=== PATIENT | male | born 1980 | race African-American/Black ===

== ENCOUNTER 2018-04-26 14:25 | Emergency (ER) | payer MEDICAID ==
[~2018-04-26] VITALS: Ht 188 cm; Wt 89.8 kg
[2018-04-26] MEDS ORDERED: GABAPENTIN100 MG ORAL (15:09)
[2018-04-26 15:34] VITALS: BP 144/89
--- NOTE | 2018-04-27 14:47 | Emergency Room Report ---
History of Present Illness General Chief Complaint: General Complaint Source: Patient Present Illness HPI 38-year-old male presents ED for evaluation. Patient states he's been experiencing leg numbness in his bilateral legs for the last 3 months. Denies any bowel or bladder incontinence. Denies any pain. Denies any recent injury. Denies any back pain. No other aggravating or relieving factors. Denies any other associated symptoms Allergies: Coded Allergies: No Known Allergies (Unverified , 04/26/18) Patient History Past Medical History: none Past Surgical History: none Pertinent Family History: none Social History: Denies: smoking, alcohol use, drug use Immunizations: UTD Reviewed Nursing Documentation: PMH: Agreed; PSxH: Agreed Nursing Documentation-PMH Past Medical History: No Stated History Review of Systems All Other Systems: negative except mentioned in HPI Physical Exam Vital Signs Date Time Temp Pulse Resp B/P (MAP) Pulse Ox O2 Delivery O2 Flow Rate FiO2 04/26/18 14:32 98.1 69 18 144/89 98 Room Air 98.1 Sp02 EP Interpretation: reviewed, normal General Appearance: no apparent distress, alert, GCS 15, non-toxic Head: normocephalic, atraumatic Eyes: bilateral eye normal inspection, bilateral eye PERRL ENT: hearing grossly normal, normal pharynx, no angioedema, normal voice Neck: full range of motion, supple/symm/no masses Respiratory: chest non-tender, lungs clear, normal breath sounds, speaking full sentences Cardiovascular #1: regular rate, rhythm, no edema Cardiovascular #2: 2+ carotid (R), 2+ carotid (L), 2+ radial (R), 2+ radial (L) , 2+ dorsalis pedis (R), 2+ dorsalis pedis (L) Gastrointestinal: normal bowel sounds, non tender, soft, non-distended, no guarding, no rebound Rectal: deferred Genitourinary: normal inspection, no CVA tenderness Musculoskeletal: back normal, gait/station normal, normal range of motion, non- tender Neurologic: alert, oriented x3, responsive, 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, motor strength/tone normal, sensory intact, cerebellar normal, normal gait, speech normal Psychiatric: judgement/insight normal, memory normal, mood/affect normal, no suicidal/homicidal ideation Reflexes: 3+ bicep (R), 3+ bicep (L), 3+ tricep (R), 3+ tricep (L), 3+ knee (R) , 3+ knee (L), 3+ ankle (R), 3+ ankle (L) Skin: normal color, no rash, warm/dry, well hydrated Lymphatic: no adenopathy Medical Decision Making Diagnostic Impression: Primary Impression: Bilateral leg weakness ER Course Hospital Course 38-year-old male presents ED for evaluation of bilateral leg numbness Differential diagnoses include: neuropathy, spinal stenosis, muscle cramps Clinical course Patient placed on stretcher. After initial history, physical exam reveals a male in no acute distress. On exam there is full sensation to both legs. 5 out of 5 motor strength. Good pulses. Good color to the skin. Normal reflexes bilaterally. Patient observed walking into ED without difficulty. I explained findings to the patient. Patient admits there are no symptoms at this time. There is no emergent indication for imaging given lack of trauma, no focal neurological deficit. Patient states he is getting his insurance set up and is scheduled to see a PMD at the beginning of May. I recommend that patient explained these findings to the PMD said that he could coordinate outpatient workup. I will prescribe gabapentin for the symptoms when necessary Diagnosis - bilateral leg weakness stable and discharged to home with prescription for gabapentin. Followup with PMD. Return to ED if symptoms recur or worsen Last Vital Signs Date Time Temp Pulse Resp B/P (MAP) Pulse Ox O2 Delivery O2 Flow Rate FiO2 04/26/18 15:34 98.1 73 18 144/89 98 Room Air 98.1 Status: improved Disposition: HOME, SELF-CARE Condition: Stable Scripts Gabapentin* (GABAPENTIN*) 100 Mg Capsule 200 MG ORAL THREE TIMES A DAY for 10 Days, CAP Prov: Delroy Marin MD 04/26/18 Referrals: NOT CHOSEN IPA/,REFERRING (PCP) Patient Instructions: Radicular Pain, Spinal Stenosis, [id number] Delroy Marin MD Apr 27, 2018 14:47
== END 2018-04-26 15:22 | disposition home or self-care (01) ==
LOC: EMR 15:21
DX: R53.1 Weakness (principal); R20.0 Anesthesia of skin
CPT/HCPCS: 99282